=== PATIENT | male | born 1980 | race Caucasian/White ===

== ENCOUNTER 2016-10-28 11:48 | Emergency (ER) | payer OTHER ==
--- NOTE | ~2016-10-28 | CR63 ---
[facility] A Service of [facility] & [facility] RADIOLOGY TEXT RESULTS PATIENT: SHWETA TRINH LOCATION: [facility] : 76 UNIT #: [id number] AGE: [address]: Nehal Booker SEX: M ORDER DR: [id number] [facility] [address] [place], [place] [address] [id number] MR#: [id number] Acc #: [id number] NAME: SHWETA TRINH. : 1980 SEX: M STUDY DATE/TIME: 10/28/2016 11:31 UNIT: [facility] ROOM: STUDY DESCRIPTION: CR Chest 2 View Attending Physician: Nehal Booker P.A.-C. Ordering Physician: Nehal Booker P.A.-C. Primary Care Physician: Primary Care Physician No MEDICAL IMAGING REPORT This report is preliminary unless electronic signature is present EXAM Chest 2 views, 10/28/2016 11:31 hours HISTORY 36-year-old man complaining of cough, congestion and headache for 2 days. COMPARISON 04/29/2013 FINDINGS 2 PA views and a lateral view demonstrate normal cardiac, mediastinal and hilar contours. The lungs are well expanded and clear of acute densities. Benign calcified granulomatous changes are stable. There is no effusion. IMPRESSION No acute cardiopulmonary findings. Stable benign calcified granulomatous changes. Dictated by... Fawn Jj M.D. THIS IS AN ELECTRONICALLY VERIFIED REPORT Fawn Jj M.D. at 10/28/2016 6:54 PM Reena TD: 10/28/2016 14:58 JOB #: [id number] MEDICAL IMAGING REPORT COPY
[2016-10-28 11:48] LABS: INFLUENZA A NEG (NEG); INFLUENZA B NEG (NEG)
[~2016-10-28 11:48] MED LIST: ALBUTEROL17 G1; ALBUTEROL17 GM INH; E-MYCIN250 MG PO; IBUPROFEN PO; KEFLEX PO; MEDROL DOSEPAK4 MG PO; PROAIR HFA8.5 GM IH; TESSALON200 MG PO; VICODIN 5/500 T1 TAB PO; ZITHROMAX1 G/PKT PO
== END 2016-10-28 12:36 | disposition home or self-care (01) ==
LOC: CFTX 11:48
PROVIDERS: Physician Assistant
DX: J06.9 Acute upper respiratory infection, unspecified (principal); J45.909 Unspecified asthma, uncomplicated; K21.9 Gastro-esophageal reflux disease without esophagitis; Z98.890 Other specified postprocedural states; F17.210 Nicotine dependence, cigarettes, uncomplicated; Z88.0 Allergy status to penicillin; Z88.2 Allergy status to sulfonamides
CPT/HCPCS: 71020; 87804; 99283